=== PATIENT | male | born 1965 | race American Indian/Alaskan Native ===

== ENCOUNTER 2024-12-01 10:59 | Observation (INO) | payer BC, SELFPAY ==
[2024-12-01] VITALS (8 sets, daily range): BP systolic 143–181; BP diastolic 87–114; PULSE 64–87; RESP 16–20; TEMP 36.2–37.1; O2SAT 94–97; BMI 32.3
--- NOTE | 2024-12-01 11:00 | PC.NURSE ---
STROKE ALERT INITIATED PRIOR TO ARRIVAL AT 1050. APON ARRIVAL TO ED PT IMMEDIATELY ASSESSED BY MD AND DIRECTED TO CT PER STROKE PROTOCOL.
--- NOTE | 2024-12-01 11:02 | EKG_ITS ---
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
--- NOTE | 2024-12-01 11:02 | XR_ITS ---
Examination: CT brain head without contrast. 2-D sagittal coronal reconstructions Date and time of exam:December 01, 2024 1105 hours INDICATIONS: Stroke alert, onset left-sided body numbness beginning this morning CTDI: vol (mGy):51.8 DLP: (mGycm):1069 Technique: Multiple CT axial sections of the brain have been obtained, 5 mm slice thickness. Contrast has not been administered. 2-D sagittal, coronal reconstructions have been obtained Low dose protocols were performed. One or more of the following dose reduction techniques were used; automated exposure control, adjustment of the mA and/or KV according to patient size, use of iterative reconstruction technique. Findings: No significant ventricular enlargement. Intra-axial or extra-axial hemorrhage density is not seen. No mass effect or midline shift Basal cisterns are not remarkable. Fourth ventricle is midline. Cranial vault intact. Impression: Negative for acute hemorrhage, mass effect or midline shift
--- NOTE | 2024-12-01 11:02 | XR_ITS ---
Examination: CTA carotids with intravenous contrast CTA brain, head with intravenous contrast. 2-D sagittal, coronal reconstructions. 3-D reconstructions. Exam date and time: December 01, 2024 11:11 AM INDICATIONS: Stroke alert, onset left-sided body numbness beginning this morning CTDI: vol (mGy) 93.4 DLP: (mGycm) 545 Technique: Multiple CTA axial brain, head carotid images post intravenous contrast injection 100 cc, Isovue-370. 2-D sagittal, coronal reconstructions. 3-D reconstructions, 3-D post processing including vascular maximum intensity projection images. Low dose protocols were performed. One or more of the following dose reduction techniques were used; automated exposure control, adjustment of the mA and/or KV according to patient size, use of iterative reconstruction technique. Findings: No common carotid carotid bifurcation or internal carotid artery significant stenoses No vertebral artery stenoses. Mild irregularity posterior cerebral branches. No cerebral large vessel arterial occlusions or thrombus IMPRESSION: No significant neck arterial stenoses No cerebral large vessel arterial occlusions
--- NOTE | 2024-12-01 11:07 | EDNOTE_ITS ---
Neuro Symptoms Deficit-RME/HPI General Stated Complaint: NUMBNESS/ POSSIBLE STROKE Time Seen by Provider: 12/01/24 11:01 Arrival date/time: 12/01/24 10:59 Limitations: no limitations RME / HPI RME / HPI Narrative: 59 year old male with history of hypertension presents to the ED via BIBA from his PCP's office for further evaluation of stroke-like symptoms that began at approximately 10:00 AM today. The patient reports experiencing left-sided facial and upper extremity numbness and tingling, slurred speech, and a change in gait. States he went to his PCP's office in [place] for evaluation where he was referred to the ED for further evaluation and treatment. Per EMS, on scene the patient had a G-FAST score of 0. Prehospital blood sugar was 120 and blood pressure was 175/106. While in the ED, the patient reports that the left-sided numbness persists and remains unchanged. Patient mentioned a previously taking Plavix and last took one year ago. Patient also reports noncompliance with his hypertension medication and has missed 3 doses in the last week. No other associated symptoms or complaints at this time. Denies fevers, chills, chest pain, cough, shortness of breath, abdominal pain, nausea, vomiting, diarrhea, or urinary symptoms. LKWT 10:00 AM 12/01/2024. Related Data Allergies Allergy/AdvReac Type Severity Reaction Status Date / Time No Known Allergies Allergy Unknown Uncoded 10/12/09 09:05 Review of Systems Review of Systems Systems Reviewed: All systems reviewed, normal except as documented Past Medical History Past Medical History CARDIAC: Positive Cardiac Disorders and Hypertension Social History SMOKING STATUS: Never smoker ED Exam General Limitations: Present no limitations General appearance: Present alert and in no apparent distress Head Head exam: Present atraumatic, normocephalic and normal inspection Eye Eye exam: Present normal appearance, PERRL and EOMI ENT ENT exam: Present normal exam, normal oropharynx and mucous membranes moist Neck Neck exam: Present normal inspection, full ROM and trachea midline Chest Chest inspection: Present normal inspection and symmetric chest wall rise Respiratory Respiratory exam: Present normal lung sounds bilaterally Cardiovascular Cardiovascular exam: Present regular rate, normal rhythm and normal heart sounds Abdominal Exam Abdominal exam: Present soft and normal bowel sounds Extremities Exam Extremities exam: Present normal inspection and full ROM Back Exam Back exam: Present normal inspection and full ROM Neurological Exam Neurological exam: Present alert, oriented X3, CN II-XII intact and other (No facial droop, no drift ) Psychiatric Psychiatric exam: Present normal affect and normal mood Skin Skin exam: Present warm, dry, intact and normal color Course Quality Measures Suspected type of Stroke: TIA Last known well (date): 12/01/24 Last known well (time): 10:00 Tenecteplase given: Reason(s) TPA not given: Stroke severity too mild (non-disabling) not given stroke Orders Category Date Time Status Bedside Blood Glucose NOW Care 12/01/24 11:02 Active Radiological Equipment Specialist NOW Care 12/01/24 11:02 Active Continuous Pulse Oximetry NOW Care 12/01/24 11:02 Completed EKG (ED ONLY) *Do not use* NOW Care 12/01/24 11:02 Completed In and Out Catheter NEEDED Care 12/01/24 11:02 Active Insert IV NOW Care 12/01/24 11:02 Active NIH Stroke Scale now Care 12/01/24 11:02 Active NPO NOW Care 12/01/24 11:02 Active Nurse Swallow Screen x1 Care 12/01/24 11:02 Active Consult to Neurology / Tele-Neurology Routine Cons 12/01/24 11:[address] angio stroke protocol Stat Exams 12/01/24 11:[address] stroke protocol Stat Exams 12/01/24 11:02 Completed EKG (ED Only) Stat Exams 12/01/24 11:02 Draft CBC Stat Lab 12/01/24 11:13 Completed Comprehensive Metabolic Panel Stat Lab 12/01/24 11:13 Completed Drug Screen,Urine Stat Lab 12/01/24 11:50 Completed HCG Titer if Positive Stat Lab 12/01/24 11:13 Completed Magnesium Stat Lab 12/01/24 11:13 Completed Partial Thromboplastin Time Stat Lab 12/01/24 11:13 Completed Prothrombin Time with INR Stat Lab 12/01/24 11:13 Completed Troponin I Stat Lab 12/01/24 11:13 Completed Urinalysis Stat Lab 12/01/24 11:50 Completed Urine Culture Stat Lab 12/01/24 11:50 Received Aspirin Chew Med 12/01/24 12:14 Discontinued 162 mg PO X1 ONE Metoprolol Tartrate Inj [Lopressor Inj] Med 12/01/24 12:14 Discontinued 5 mg IVP X1 ONE Oxygen Delivery NOW RT 12/01/24 11:02 Active Vital Signs Vital signs: Vital Signs Pulse Rate 76 12/01/24 11:01 Respiratory Rate 20 12/01/24 11:01 Blood Pressure 181/110 H 12/01/24 11:01 Pulse Oximetry (%) 94 L 12/01/24 11:01 Oxygen Delivery Method Room Air 12/01/24 11:01 Pulse ox is 94% on room air which is adequate. Neuro Symptoms / Deficit MDM Narrative MDM Narrative:: Briana Hirsch am scribing for and in the presence of Dr. Miner. Patient data External records reviewed:: EMS form Clinical information provided by:: patient and EMS (Provided prehospital course ) Social determinants that could affect healthcare access:: none Patient has the following chronic illnesses:: Hypertension, medication noncompliance How is presenting disease/condition affected by chronic disease/condition?: exacerbated by Evaluation data The following diagnostics were reviewed and interpreted by me:: lab results, radiology exam(s) and EKG tracing(s) (EKG at 11:24 am. Sinus rhythm, rate 76, no acute ST or T-wave changes. ) Lab and/or radiology exams considered but not ordered:: None Interpretation Summary: Ordering Physician: Samir Miner MD Date of Service: 12/01/24 Procedure(s): CT stroke protocol Accession Number(s): [id number] cc: Samir Miner MD; Antwon Green MD~ Examination: CT brain head without contrast. 2-D sagittal coronal reconstructions Date and time of exam:December 01, 2024 1105 hours INDICATIONS: Stroke alert, onset left-sided body numbness beginning this morning CTDI: vol (mGy):51.8 DLP: (mGycm):1069 Technique: Multiple CT axial sections of the brain have been obtained, 5 mm slice thickness. Contrast has not been administered. 2-D sagittal, coronal reconstructions have been obtained Low dose protocols were performed. One or more of the following dose reduction techniques were used; automated exposure control, adjustment of the mA and/or KV according to patient size, use of iterative reconstruction technique. Findings: No significant ventricular enlargement. Intra-axial or extra-axial hemorrhage density is not seen. No mass effect or midline shift Basal cisterns are not remarkable. Fourth ventricle is midline. Cranial vault intact. Impression: Negative for acute hemorrhage, mass effect or midline shift Dictated By: Antwon Green MD Signed By: <Electronically signed by Antwon Green MD in OV> 12/01/24 1124 Ordering Physician: Samir Miner MD Date of Service: 12/01/24 Procedure(s): CT angio stroke protocol Accession Number(s): [id number] cc: Samir Miner MD; Antwon Green MD~ Examination: CTA carotids with intravenous contrast CTA brain, head with intravenous contrast. 2-D sagittal, coronal reconstructions. 3-D reconstructions. Exam date and time: December 01, 2024 11:11 AM INDICATIONS: Stroke alert, onset left-sided body numbness beginning this morning CTDI: vol (mGy) 93.4 DLP: (mGycm) 545 Technique: Multiple CTA axial brain, head carotid images post intravenous contrast injection 100 cc, Isovue-370. 2-D sagittal, coronal reconstructions. 3-D reconstructions, 3-D post processing including vascular maximum intensity projection images. Low dose protocols were performed. One or more of the following dose reduction techniques were used; automated exposure control, adjustment of the mA and/or KV according to patient size, use of iterative reconstruction technique. Findings: No common carotid carotid bifurcation or internal carotid artery significant stenoses No vertebral artery stenoses. Mild irregularity posterior cerebral branches. No cerebral large vessel arterial occlusions or thrombus IMPRESSION: No significant neck arterial stenoses No cerebral large vessel arterial occlusions Dictated By: Antwon Green MD Signed By: <Electronically signed by Antwon Green MD in [place]> 12/01/24 1137 Medications / Prescriptions Medications or Prescriptions considered but not ordered:: None Medication administrations:: Medication Administration History Discontinued Medications Aspirin (Aspirin 81 Mg Chew) 162 mg PO X1 ONE Stop: 12/01/24 12:15 Metoprolol Tartrate (Metoprolol Tartrate Inj 1 Mg/Ml Amp 5 Ml) 5 mg IVP X1 ONE Stop: 12/01/24 12:15 See above Consultations Consultation(s) initiated? (list below): Yes Consultation #1 (Physician, Specialty, Details): Radiologist Dr. Green called to report head CT was negative for hemorrhage. Time: 11:24 Consultation #2 (Physician, Specialty, Details): I spoke with teleneurologist Dr. Thibodeaux. States patient at this time is not a candidate for TNK. Time: 11:42 Consultation #3 (Physician, Specialty, Details): I spoke with resident working with Dr. Ga. Discussed patients PMHx, HPI, ED course, exam findings, labs, and radiology results. The hospitalist agree to accept the patient for admission. Time: 12:17 Diagnosis Neuro Differential Diagnosis: subarachnoid hemorrhage, cerebrovascular accident and transient cerebral ischemia Most likely diagnosis given after review of the tests above:: TIA Admission Indicated Admission indicated?: indicated Admission Request Was there a request for admission?: Yes Admission Attestation Admission request attestation: Discussed case with [] from Hospitalist service regarding admission. Discussed patients ED course, exam findings, labs, and radiology results. The Hospitalist [agrees,declines] to accept the patient for admission. Disposition Plan Disposition Plan: Admit Critical Care Time Critical Care Time Critical Care Time: Yes Total Critical Care Time (min.): 35 Attestation: The high probability of sudden, clinically significant deterioration in the patient's condition required the highest level of my preparedness to intervene urgently. The services I provided to this patient were to treat and/or prevent clinically significant deterioration. Services included the following: chart data review, reviewing nursing notes and/or old charts, documentation time, education consultant collaboration regarding findings and treatment options, medication orders and management, direct patient care, vital sign assessments and ordering, interpreting and reviewing diagnostic studies and lab tests. Aggregate critical care time includes only time during which I was engaged in work directly related to the patient's care, as described above, whether at bedside or elsewhere in the Emergency Department. It did not include time spent performing other reported procedures or the services of residents, students, nurses or physician assistants. Discharge Plan Plan Patient Disposition: Admit Acute Care w/in Hospital Prescriptions/Referrals Referrals: No Primary/Family,Physician [Primary Care Provider] - In 1 week Problem List Clinical Impression: TIA (transient ischemic attack) Patient/Caregiver Discharge Instructions Print Language: Belarusian Stand Alone Forms: Yasemin Award Info., Patient Portal Info Letter
[2024-12-01 11:24] LABS: Basophils # (Auto) 0.1 Thou/mm3 (0.0-0.2); Basophils % (Auto) 1 % (0-2.5); Eosinophils # (Auto) 0.1 Thou/mm3 (0.0-0.5); Eosinophils % (Auto) 2 % (0-10); Hematocrit 44.3 % (41.0-53.0); Hemoglobin 15.5 g/dL (13.5-16.0); Immature Granulocytes % (Auto) 0 % (0-0); Immature Granulocytes Auto 0.02 Thou/mm3 (0.00-0.00); Lymphocytes # (Auto) 1.8 Thou/mm3 (1.0-4.8); Lymphocytes % (Auto) 26 % (10-50); Mean Corpuscular Hemoglobin 30.4 pg (25.0-35.0); Mean Corpuscular Volume 87 fL (80-100); Monocytes # (Auto) 0.6 Thou/mm3 (0.0-0.8); Monocytes % (Auto) 9 % (0-12); Neutrophils # (Auto) 4.4 Thou/mm3 (1.8-7.7); Neutrophils % (Auto) 63 % (37-80); Nucleated Red Blood Cell % 0 /100 WBC (0); Platelet Count 312 Thou/mm3 (140-440); RDW Standard Deviation 43.4 fL (35.1-43.9); White Blood Count 7.1 Thou/mm3 (3.8-10.6)
[2024-12-01 11:35] LABS: Partial Thromboplastin Time 25.6 Seconds (22.0-36.0); Prothrombin Time 11.4 Seconds (9.0-12.2)
[2024-12-01 11:38] LABS: Alanine Aminotransferase 25 U/L (10-49); Albumin, Serum 4.3 gm/dL (3.5-5.0); Albumin/Globulin Ratio 1.7 (1.2-2.2); Alkaline Phosphatase 82 U/L (46-116); Anion Gap 10 (7-16); Aspartate Amino Transferase 24 U/L (0-34); BUN/Creatinine Ratio 17 Ratio (12-20); Bilirubin,Total 0.8 mg/dL (0.3-1.2); Blood Urea Nitrogen 20 mg/dL (9-23); Calcium 8.9 mg/dL (8.3-10.6); Calcium (Corrected) 8.9 mg/dL (8.5-10.1); Chloride 107 mMol/L (98-107); Creatinine (Component) 1.2 mg/dL (0.6-1.3); Estimated Creatinine Clearance 70.8 mL/min (>60); Globulin 2.6 gm/dL (2.3-3.5); Glucose 121 mg/dL (74-106); Osmolality,Calculated 286 (275-295); Potassium 3.6 mMol/L (3.4-5.1); Sodium 142 mMol/L (136-145); Total Protein 6.9 gm/dL (5.7-8.2); Troponin I < 0.002 ng/mL (0.0-0.045); eGFR > 60 See Note
--- NOTE | 2024-12-01 11:42 | ESCONSULT_ITS ---
Tele Neuro Consultation Consultation Date 12/01/24 Most Recent Vital Signs Last Vital Signs Temp 98.8 F 12/01/24 11:28 Pulse 75 12/01/24 11:02 Resp 20 12/01/24 11:01 BP 181/110 H 12/01/24 11:01 Pulse Ox 94 L 12/01/24 11:01 O2 Del Method Room Air 12/01/24 11:28 Laboratory-Coagulation Panel PT 11.4 Seconds (9.0-12.2) 12/01/24 11:13 INR 1.0 (0.9-1.3) 12/01/24 11:13 APTT 25.6 Seconds (22.0-36.0) 12/01/24 11:13 Consultation Narrative [facility] Tele[facility]rology Consult Services Patient Name:???Ronaldo Montalvo Date of :???1965 Identification Number:??? Date of Service:???12/01/2024 10:51:07 Diagnosis:?G45.9 - Transient cerebral ischemic attack, unspecified Impression: ?Patient presented with numbness. Head CT shows no acute process. no thrombolytics were offered since patient has no disabling symptoms. Our recommendations are outlined below. Recommendations: ? Stroke/Telemetry Floor ? Neuro Checks ? Bedside Swallow Eval ? DVT Prophylaxis ? IV Fluids, Normal Saline ? Head of Bed 30 Degrees ? Euglycemia and Avoid Hyperthermia (PRN Acetaminophen) ? Initiate or continue Aspirin 325 MG daily Sign Out: ? Discussed with Emergency Department Provider Advanced Imaging:CTA Head and Neck Completed. LVO:No Patient in not a candidate for ERA Metrics: Last Known Well: 12/01/2024 10:00:00 Dispatch Time: 12/01/2024 10:51:07 Arrival Time: 12/01/2024 10:59:00 Initial Response Time: 12/01/2024 10:52:00Symptoms: SLurred speech. Initial patient interaction: 12/01/2024 11:07:25 NIHSS Assessment Completed: 12/01/2024 11:12:00Patient is not a candidate for Thrombolytic. Thrombolytic Medical Decision: 12/01/2024 11:13:41Patient was not deemed candidate for Thrombolytic because of following reasons: Stroke severity too mild (non-disabling) . CT head showed no acute hemorrhage or acute core infarct. Primary Provider Notified of Diagnostic Impression and Management Plan on: 12/01/2024 11:41:35 History of Present Illness:Patient is a 59 year old Male. Patient was brought by EMS for symptoms of SLurred speech. Past medical history of hypertension presented with numbness on the left side. History was provided by the patient at bedside. Last seen normal was around 1000 [address] Started to have numbness and slurred speech. Was seen by PCP and transferred to ER. In route symptoms improved. ? Past Medical History: ?Hypertension Medications: No Anticoagulant use? No Antiplatelet use Reviewed EMR for current medications Allergies:? Reviewed Social History: Drug Use: No Family History: There is no family history of premature cerebrovascular disease pertinent to this consultation ROS : 14 Points Review of Systems was performed and was negative except mentioned in HPI. Past Surgical History: There Is No Surgical History Contributory To Today?s Visit ? Examination: BP(176/106),?Pulse(76), 1A: Level of Consciousness - Alert; keenly responsive?+ 0 1B: Ask Month and Age - Both Questions Right?+ 0 1C: Blink Eyes & Squeeze Hands - Performs Both Tasks?+ 0 2: Test Horizontal Extraocular Movements - Normal?+ 0 3: Test Visual Esteves - No Visual Loss?+ 0 4: Test Facial Palsy (Use Grimace if Obtunded) - Normal symmetry?+ 0 5A: Test Left Arm Motor Drift - No Drift for 10 Seconds?+ 0 5B: Test Right Arm Motor Drift - No Drift for 10 Seconds?+ 0 6A: Test Left Leg Motor Drift - No Drift for 5 Seconds?+ 0 6B: Test Right Leg Motor Drift - No Drift for 5 Seconds?+ 0 7: Test Limb Ataxia (FNF/Heel-Farr) - No Ataxia?+ 0 8: Test Sensation - Normal; No sensory loss?+ 0 9: Test Language/Aphasia - Normal; No aphasia?+ 0 10: Test Dysarthria - Normal?+ 0 11: Test Extinction/Inattention - No abnormality?+ 0 NIHSS Score:?0 Pre-Morbid Modified [place] Scale:0 Points = No symptoms at all Spoke with :?Dr Miner This consult was conducted in real time using interactive audio and video technology. Patient was informed of the technology being used for this visit and agreed to proceed. Patient located in hospital and provider located at home/office setting. Patient is being evaluated for possible acute neurologic impairment and high probability of imminent or life-threatening deterioration. I spent total of 30 minutes providing care to this patient, including time for face to face visit via telemedicine, review of medical records, imaging studies and discussion of findings with providers, the patient and/or family. Dr Sam Raygoza-Kenia Thibodeaux [facility] For Inpatient follow-up with [facility] physician please call [facility] at . As we are not an outpatient service for any post hospital discharge needs please contact the hospital for assistance. If you have any questions for the [facility] physicians or need to reconsult for clinical or diagnostic changes please contact us via [facility] at .
[2024-12-01 11:45] LABS: HCG Titer if Positive Negative
[2024-12-01 11:55] LABS: Collection Type, Urine Clean Catch; Squamous Epithelial Cell,Urine 0 /hpf (0-5)
[2024-12-01 12:01] LABS: Bilirubin,Urine Negative (Negative); Blood,Urine Negative (Negative); Clarity,Urine Clear (Clear/Hazy); Color,Urine Lt-Yellow (Lt Yel-Yel); Glucose, Urine Negative (Negative); Ketones,Urine Negative (Negative); Leukocyte Esterase,Urine Negative (Negative); Nitrite,Urine Negative (Negative); Protein,Urine Negative (Neg - Trace); RBC,Urine 1 /hpf (0-3); Urobilinogen,Urine Negative mg/dL (0.0-1.0); WBC,Urine 1 /hpf (0-5)
[2024-12-01 12:05] LABS: Amphetamine/Methamp Scrn,U Negative (Negative); Barbiturate Screen,Urine Negative (Negative); Benzodiazepines Screen,Urine Negative (Negative); Benzoylecgonine Screen, Ur Negative (Negative); Fentanyl Screen,Urine Negative (Negative); Opiate Screen,Urine Negative (Negative); THC Screen,Urine Negative (Negative)
[2024-12-01] MEDS: ASPIRIN 81 MG CHEW 162 MG PO (12:53)
[2024-12-01] MEDS: METOPROLOL TARTRATE INJ 1 MG/ML AMP 5 ML 5 MG IVP (12:54)
--- NOTE | 2024-12-01 14:05 | ESHP_ITS ---
<Statement entered by Jammie Willams MD - 12/01/24 16:14> A[id number]-old male patient with hypertension, CAD, anxiety, hyperlipidemia, came to the ED due to acute slurred speech times and left-sided weakness. His symptoms started suddenly with no triggering factor. Patient denied any blurry vision, however he mentioned that he was somehow dizzy. Reported also mouth deviation. Last time none to be fine was 10 AM when he started to experience the symptoms he went to his primary care provider in [place] in which he recommended him to come to the ED. In the ambulance BE-FAST screening was 0. On presentation all patient symptoms has resolved. CT brain, CTA of head and neck was negative for acute on presentation her blood pressure was 181/110 he was given metoprolol 5 mg IV by the ED physician. Patient was admitted for stroke workup we are pending in house Neuro-recs, patient was started on aspirin 325, A1c, lipid panel, were ordered for risk stratification, PT was ordered, will need to monitor. During patient assessment he mentions that he drinks 8 to 12 cans of beer socially. However he denied daily alcohol drinking. For that reason we will keep monitoring the patient if he started to experience withdrawal symptoms we will put him on CIAK protocol. - Patient's plan and care discussed with my attending, Dr. Lenora Willams MD Internal Medicine PGY-2 Documentation for date of: 12/01/24 HPI History of Present Illness Chief complaint: Slurred speech, Left sided weakness History of present illness: HPI: Patient is Guyanese-speaking and interaction facilitated by registered healthcare collection team lead. Patient's son was present at bedside Patient is a 59-year-old male with a past medical history significant for coronary artery disease s/p angiogram 2020, primary hypertension, anxiety and hyperlipidemia presented today with a chief complaint of slurred speech and left-sided weakness. Approximately 10 AM today patient was driving when he began to experience symptoms. He felt dizzy and left-sided weakness. He was talking on the phone to his son who also reported that his speech was slurred. Denies any vision changes, tactile changes, presyncope/syncope, trauma, palpitations and SOB. Patient immediately drove to the nearest urgent care in [place] and was subsequently transferred to [facility] via ambulance. By this time his symptoms had completely resolved Of note in 2020 patient had coronary angiogram done at [facility] after which he was on Plavix for a few years, but then stopped taking it. He does not have any cardiology follow-up outpatient and cannot recall if any stents were placed. Teleneurology was consulted who recommended neurochecks, DVT prophylaxis and aspirin 325 mg daily. ED course: BP 181/110, pulse 76, RR 20, temp 98.8 F, SpO2 94% on room air. CT head and CTA were negative for any acute findings. Labs were significant for Hb 15.5, HCT 44.3, BUN 23, CR 1.2, Trop<0.002 In the ED patient received aspirin 162 Mg p.o. x 1 and metoprolol tartrate 5 Mg IV x 1 Patient will be admitted for treatment and management of hypertensive emergency and TIA. Neurology, Dr. Luo consulted and closely following the case. Review of Systems Review of Systems Narrative Review of Systems: GENERAL: Denies fever/chills or diaphoresis. HEENT: Denies headaches or visual changes. Denies discharge. Neuro: As above CARDIO: Denies chest pain or palpitations. PULM: Denies SOB, coughing or wheezing. GI: Denies abdominal pain, N/V/C/D. Reports having BMs. URO: Denies burning/itching/pain/urinary changes. MSK/EXT/SKIN: Denies joint/skeletal/muscle pain, issues/changes in upper or lower extremities, itchiness, or superficial pain. PSYCH: Cooperative, pleasant mood & affect. The rest of the review of systems is otherwise negative. Past Medical History Past Medical History Comments PMH COMMENT: Past medical history: Coronary artery disease Primary hypertension Anxiety Hyperlipidemia Medication list: Lisinopril 10 Mg p.o. daily Clopidogrel 75 Mg p.o. 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 Education Level: Attended up to middle school Marital Status: Single. Has 4 kids Tobacco use: Quit 20 years ago. Previously approximately 15/30-prxk-woml history ETHO use: Occasionally drinks about 10 beers on weekends Illicit drug use: Denies Social History Note: lives alone and does not exercise Family History: No significant history Exam Vital Signs Temp Pulse Resp BP Pulse Ox O2 Del Method 98.4 F 72 18 163/114 H 94 L Room Air 12/01/24 12:47 12/01/24 12:54 12/01/24 12:47 12/01/24 12:54 12/01/24 12:47 12/01/24 12:47 Narrative Exam Constitutional Alert, oriented x 3 and comfortable HEENT Vision grossly intact. Patent nares. Trachea midline Respiratory Chest normal on inspection and clear auscultation bilaterally Cardiovascular S1 and S2 audible, RRR. No murmurs carotid bruit. No gross JVD. Abdominal Soft and non tender to palpation in all quadrants. BS + Genitourinary No bladder tenderness, no flank pain. Normal to palpation Musculoskeletal Extremities tone within normal limits. No LE edema. Skin Warm, dry and intact. No apparent lesions. Psychiatric Patient has good affect, is cooperative Neurological CN II - XII grossly intact. Extremity motor and sensation grossly intact. 1A: Level of Consciousness - No deficit + 0 1B: Ask Month and Age - Answered correctly + 0 1C: Blink Eyes & Squeeze Hands - Performs Both Tasks + 0 2: Test Horizontal Extraocular Movements - Normal + 0 3: Test Visual Esteves - Normal + 0 4: Test Facial Palsy (Use Grimace if Obtunded) - No flat nasolabial fold, smile asymmetry + 0 5A: Test Left Arm Motor Drift - No Drift for 10 Seconds + 0 5B: Test Right Arm Motor Drift - No Drift for 10 Seconds + 0 6A: Test Left Leg Motor Drift - No Drift for 5 Seconds + 0 6B: Test Right Leg Motor Drift - No Drift for 5 Seconds + 0 7: Test Limb Ataxia (FNF/Heel-Farr) - No Ataxia + 0 8: Test Sensation - Normal; No sensory loss + 0 9: Test Language/Aphasia - Normal + 0 10: Test Dysarthria - Normal + 0 11: Test Extinction/Inattention - No abnormality + 0 NIHSS Score: 0 Results: Labs 12/02/24 05:42 12/02/24 05:42 Labs: Short CBC 12/01/24 Range/Units 11:13 WBC 7.1 (3.8-10.6) Thou/mm3 Hgb 15.5 (13.5-16.0) g/dL Hct 44.3 (41.0-53.0) % Plt Count 312 (140-440) Thou/mm3 BMP 12/01/24 11:13 Sodium 142 Potassium 3.6 Chloride 107 Carbon Dioxide 25.0 BUN 20 Creatinine 1.2 Glucose 121 H Calcium 8.9 Cardiac Enzymes 12/01/24 Range/Units 11:13 Troponin I < 0.002 (0.0-0.045) ng/mL Liver Function 12/01/24 Range/Units 11:13 Total Bilirubin 0.8 (0.3-1.2) mg/dL AST 24 (0-34) U/L ALT 25 (10-49) U/L Alkaline Phosphatase 82 (46-116) U/L Albumin 4.3 (3.5-5.0) gm/dL Urine 12/01/24 Range/Units 11:50 Urine Color Lt-Yellow (Lt Yel-Yel) Urine Clarity Clear (Clear/Hazy) Urine pH 6.0 (5.0-7.0) Ur Specific [place] 1.040 H (1.001-1.035) Urine Protein Negative (Neg - Trace) Urine Glucose (UA) Negative (Negative) Quality Measures Quality Measures stroke Suspected type of Stroke: TIA Last known well (date): 12/01/24 Last known well (time): 10:00 Tenecteplase given: Reason(s) Tenecteplase not given: Stroke severity too mild (non-disabling) not given Rehab services: PT evaluation ordered VTE Prophylaxis: pharmaceutical Antithrombotic by day 2:: ordered Statin ordered: <75 y/o high intensity dose Anticoagulation ordered for A-fib or flutter (current or hx): not indicated Medications Home Medications and Allergies Home Medications ?Medication ?Instructions ?Recorded ?Confirmed ?Type buspirone 10 mg tablet 10 mg PO Q6HR PRN anxiety 12/01/24 History lisinopril 20 mg tablet 20 mg PO QDAY 12/01/2412/01 History Allergies Allergy/AdvReac Type Severity Reaction Status Date / Time No Known Allergies Allergy Unknown Uncoded 10/12/09 09:05 Visit Medications Acetaminophen (Acetaminophen 325 Mg Tablet) 650 mg PO Q6H PRN PRN Reason: Fever >100.3 or pain(1-3) Stop: 12/31/24 13:51 Hydrocodone Bitart/Acetaminophen (Hydrocodone/Apap 5/325 Tablet) 1 tab PO Q4HR PRN PRN Reason: PAIN SCALE 4-10(Mod-Sev Stop: 12/06/24 13:51 Albuterol/Ipratropium (Albuterol/Ipratropium (Duoneb) Rt Miya 3 Ml Nebu) 3 ml INH Q2HR PRN PRN Reason: SHORTNESS OF BREATH OR WHEEZE Stop: 12/31/24 13:51 Aspirin (Aspirin Ec 81 Mg Tabec) 81 mg PO QDAY [facility] Stop: 01/01/25 08:59 Atorvastatin Calcium (Atorvastatin Calcium 20 Mg Tablet) 40 mg PO HS ADELE Stop: 12/31/24 13:59 Heparin Sodium (Porcine) (Heparin Sod Inj 5000 Unit/Ml Vial) 5,000 unit SC Q12HR [facility] Stop: 12/15/24 13:59 Lisinopril (Lisinopril 2.5 Mg Tablet) 10 mg PO QDAY [facility] Stop: 12/31/24 13:59 Morphine Sulfate (Morphine Sulf Inj 10 Mg/Ml Vial) 2 mg IVP Q4H PRN PRN Reason: Breakthrough Pain Stop: 12/06/24 13:51 Ondansetron HCl (Ondansetron Inj 2 Mg/Ml Inj 2 Ml) 4 mg IV Q6H PRN; Protocol PRN Reason: NAUSEA OR VOMITING Stop: 12/31/24 13:51 Sennosides (Senna Tablet) 1 tab PO QDAY [facility]; Protocol Stop: 12/31/24 13:59 Discontinued Medications Aspirin (Aspirin 81 Mg Chew) 162 mg PO X1 ONE Stop: 12/01/24 12:15 Last Admin: 12/01/24 12:53 Dose: 162 mg Metoprolol Tartrate (Metoprolol Tartrate Inj 1 Mg/Ml Amp 5 Ml) 5 mg IVP X1 ONE Stop: 12/01/24 12:15 Last Admin: 12/01/24 12:54 Dose: 5 mg Assessment & Plan Plan Patient is Guyanese-speaking and interaction facilitated by registered healthcare collection team lead. Patient's son was present at bedside Patient is a 59-year-old male with a past medical history significant for coronary artery disease s/p angiogram 2020, primary hypertension, anxiety and hyperlipidemia presented today with a chief complaint of slurred speech and left-sided weakness. Patient will be admitted for treatment and management of hypertensive emergency and TIA. TIA Hypertensive emergency?resolving Rule out stroke Patient presented with slurred speech, dizziness and left-sided weakness On admission patient's BP was 181/110 and had symptoms of dizziness and slurred speech. CT head and CTA were both negative for any acute findings Plan: - Patient is started on stroke protocol - Neuro checks q 4H - Head of bed elevated to 30 degrees - Swallow eval and bedside swallow screen ordered - PT/OT referrals placed - Seizure precautions in place - Allow permissive HTN. Antihypertensives if BP >220/120, with a goal of reduction in BP during the first 24 hours - HbA1C, Lipid panel, TSH ordered - ECHO with bubble study ordered - PRN Acetaminophen 650mg to avoid hyperthermia - PRN Labetaol 10 mg IV Q10 mins for SBP > 220 - DVT Prophylaxis with Heparin 5000 U SC BID - ASA 325mg po daily as per Teleneurology recommendations - Dr Luo consulted, pending in-house Neurology recommendations Primary hypertension Hyperlipidemia Coronary artery disease s/p angioplasty 2020 Home medication lisinopril 10 Mg p.o. daily. Patient states that he was previously on a statin but has not been on one for many years. Plan: ? Home antihypertensive held ? Allow permissive hypertension for 24-48 hours - Atorvastatin 40 Mg p.o. at bedtime Health maintenance: Disposition: Pending PT, [facility] [employer], echo with bubble study and in-house neurology evaluation Diet: Cardiac Lines: pIVs GI Prophylaxis: None Thrombo Prophylaxis: Heparin Code status: FULL CODE Plan of care discussed with Attending Dr. Ga and PGY 2 Dr. Imer Gonzalez MD PGY 1 Disclaimer: This note was dictated by speech recognition. Minor errors in academic administrator may be present due to voice recognition software. Attending Provider Attestation/Addendum I have examined the patient, reviewed labs and imaging findings, discussed the case with the resident(s), and reviewed entered orders. I agree with the plan of care as outlined in this note, with these additional summaries/recommendations: Patient seen at bedside. Patient reports he had left facial numbness and slurred speech which is the reason he came to the emergency room although resolved just prior to presentation. Patient will be admitted to the hospital for likely transient ischemic attack. CT head was negative for acute hemorrhage, mass effect or midline shift. CTA head and neck showed no LVO or significant neck arterial stenosis. Patient was seen by teleneurology who recommends admission. Admit to telemetry, neurochecks, bedside swallow eval, euglycemia, and start aspirin 325 mg p.o. daily. Consult in-house neurology, recommendations appreciated. NIH SS score 0. No need for permissive hypertension as symptoms have resolved. Start moderate/high intensity statin. LDL 163. Further vascular stratification with TSH and A1c. Patient updated on the plan and in agreement. All questions answered to satisfaction. Dr. Harmeet MD
[2024-12-01 14:40] LABS: Glucose Estimated Average 126 mg/dL (80-131)
[2024-12-01 14:41] LABS: Cardiac Risk Estimate 5.9 RATIO (4.0-6.7); Cholesterol 234 mg/dL (132-200); HDL Cholesterol 40 mg/dL (40-60); LDL Cholesterol,Calculated 163 mg/dL (0-130); Triglycerides 155 mg/dL (30-150)
[2024-12-01 16:15] LABS: Alcohol, Blood Medical < 3.0 mg/dL (0-10.0)
--- NOTE | 2024-12-01 16:28 | PD.RESCONSUL ---
HPI Data of Consult Requesting Physician: David Ga MD Admitting Provider: David Ga MD Attending Provider: David Ga MD Primary Care Provider: Physician No Primary/Family Consult Narrative Reason for consult: left sided numbness, weakness and slurred speech History of present illness: The patient is a 59-year-old male with a previous medical history of hypertension, anxiety, CAD status post stent placement who was brought to the ED by the ambulance from the clinic after experiencing left-sided body numbness, slurred speech, dizziness and weakness. Family members also noted facial droop, unsure what side. According to the patient, approximately at 10 AM he was driving and started to experience those symptoms, went to the clinic nearby and was brought to the ED. In the ED blood pressure was 191/100, heart rate 76, afebrile, saturating [address] head and CTA head and neck was negative for acute stroke, large vessel occlusion. EKG showed sinus rhythm. Patient denies having stroke in the past. Teleneuro was consulted, NIHSS was 0, not a candidate for thrombolytic therapy due to nondisabling stroke symptoms. Patient was recommended to be admitted for workup. Neurology was consulted for stroke rule out. Social history: Denies smoking, drinking alcohol, recreational substances. Medications: Lisinopril, buspirone (bottle was but continues to take buspirone, was instructed to stop taking medication). Allergies: Denies cc:: cc: David Ga MD Review of Systems Review of Systems Systems Reviewed: All systems reviewed, normal except as documented Past Medical History Past Medical History CARDIAC: Positive Cardiac Disorders, Atherosclerotic Heart Disease, Hypercholesterolemia and Hypertension Social History SMOKING STATUS: Never smoker Exam Vital Signs Temp Pulse Resp BP Pulse Ox O2 Del Method 97.2 F 87 18 147/88 H 94 L Room Air 12/01/24 15:12/01/24 15:12/01/24 15:12/01/24 15:12/01/24 15:12/01/24 15:00 Narrative Exam Gen: Well-developed and well-nourished. HEENT: NCAT, PERRLA, EOMI, MMM, anicteric conjunctivae. CVS: normal S1 and S2. RRR. No M/R/G. Resp: CTA B/L. No rhonchi, rales, crackles or wheezing. Abd: soft, non-tender, non-distended. BS+ in all 4 quadrants. MSK: Good ROM in BUE & BLE. No edema or rash. Neuro: CN II-XII grossly intact. Strength 5/5 in BUE & BLE. Alert and oriented x3. Psych: appropriate mood and affect. Results Labs 12/01/24 11:13 12/01/24 11:13 Labs: Short CBC 12/01/24 Range/Units 11:13 WBC 7.1 (3.8-10.6) Thou/mm3 Hgb 15.5 (13.5-16.0) g/dL Hct 44.3 (41.0-53.0) % Plt Count 312 (140-440) Thou/mm3 BMP 12/01/24 11:13 Sodium 142 Potassium 3.6 Chloride 107 Carbon Dioxide 25.0 BUN 20 Creatinine 1.2 Glucose 121 H Calcium 8.9 Cardiac Enzymes 12/01/24 Range/Units 11:13 Troponin I < 0.002 (0.0-0.045) ng/mL Liver Function 12/01/24 Range/Units 11:13 Total Bilirubin 0.8 (0.3-1.2) mg/dL AST 24 (0-34) U/L ALT 25 (10-49) U/L Alkaline Phosphatase 82 (46-116) U/L Albumin 4.3 (3.5-5.0) gm/dL Urine 12/01/24 Range/Units 11:50 Urine Color Lt-Yellow (Lt Yel-Yel) Urine Clarity Clear (Clear/Hazy) Urine pH 6.0 (5.0-7.0) Ur Specific [employer] 1.040 H (1.001-1.035) Urine Protein Negative (Neg - Trace) Urine Glucose (UA) Negative (Negative) Quality Measures Quality Measures stroke Suspected type of Stroke: TIA Last known well (date): 12/01/24 Last known well (time): 10:00 Tenecteplase given: Reason(s) Tenecteplase not given: Stroke severity too mild (non-disabling) not given Rehab services: PT evaluation ordered VTE Prophylaxis: pharmaceutical Antithrombotic by day 2:: ordered Statin ordered: <75 y/o high intensity dose Anticoagulation ordered for A-fib or flutter (current or hx): not indicated Medications Home Medications and Allergies Home Medications ?Medication ?Instructions ?Recorded ?Confirmed ?Type buspirone 10 mg tablet 10 mg PO Q6HR PRN anxiety 12/01/24 12/01/24 History lisinopril 20 mg tablet 20 mg PO QDAY 12/01/24 12/01/24 History Allergies Allergy/AdvReac Type Severity Reaction Status Date / Time No Known Allergies Allergy Unknown Uncoded 10/12/09 09:05 Visit Medications Acetaminophen (Acetaminophen 325 Mg Tablet) 650 mg PO Q6H PRN PRN Reason: Fever >100.3 or pain(1-3) Stop: 12/31/24 13:51 Hydrocodone Bitart/Acetaminophen (Hydrocodone/Apap 5/325 Tablet) 1 tab PO Q4HR PRN PRN Reason: PAIN SCALE 4-10(Mod-Sev Stop: 12/06/24 13:51 Albuterol/Ipratropium (Albuterol/Ipratropium (Duoneb) Rt Miya 3 Ml Nebu) 3 ml INH Q2HR PRN PRN Reason: SHORTNESS OF BREATH OR WHEEZE Stop: 12/31/24 13:51 Aspirin (Aspirin 325 Mg Tablet) 325 mg PO QDAY ADELE Stop: 01/01/25 08:59 Atorvastatin Calcium (Atorvastatin Calcium 20 Mg Tablet) 40 mg PO HS ADELE Stop: 12/31/24 13:59 Heparin Sodium (Porcine) (Heparin Sod Inj 5000 Unit/Ml Vial) 5,000 unit SC Q12HR ADELE Stop: 12/15/24 13:59 Labetalol HCl (Labetalol Inj 5 Mg/Ml Vial 20 Ml) 10 mg IVP Q10MIN PRN PRN Reason: SBP > 220 Stop: 12/31/24 14:44 Lisinopril (Lisinopril 2.5 Mg Tablet) 10 mg PO QDAY ADELE Stop: 12/31/24 13:59 Melatonin (Melatonin 3 Mg Tablet) 3 mg PO HS ADELE Stop: 12/31/24 20:59 Morphine Sulfate (Morphine Sulf Inj 10 Mg/Ml Vial) 2 mg IVP Q4H PRN PRN Reason: Breakthrough Pain Stop: 12/06/24 13:51 Ondansetron HCl (Ondansetron Inj 2 Mg/Ml Inj 2 Ml) 4 mg IV Q6H PRN; Protocol PRN Reason: NAUSEA OR VOMITING Stop: 12/31/24 13:51 Sennosides (Senna Tablet) 1 tab PO QDAY [facility]; Protocol Stop: 12/31/24 13:59 Discontinued Medications Aspirin (Aspirin 81 Mg Chew) 162 mg PO X1 ONE Stop: 12/01/24 12:15 Last Admin: 12/01/24 12:53 Dose: 162 mg Aspirin (Aspirin Ec 81 Mg Tabec) 81 mg PO QDAY [facility] Stop: 01/01/25 08:59 Aspirin (Aspirin Ec 81 Mg Tabec) 325 mg PO QDAY [facility] Stop: 01/01/25 08:59 Aspirin (Aspirin Ec 81 Mg Tabec) 162 mg PO X1 ONE Stop: 12/01/24 15:31 Metoprolol Tartrate (Metoprolol Tartrate Inj 1 Mg/Ml Amp 5 Ml) 5 mg IVP X1 ONE Stop: 12/01/24 12:15 Last Admin: 12/01/24 12:54 Dose: 5 mg Assessment & Plan Plan The patient is a 59-year-old male with a previous medical history of hypertension, anxiety, CAD status post stent placement who was brought to the ED by the ambulance from the clinic after experiencing left-sided body numbness, slurred speech, dizziness and weakness. Neurology was consulted for stroke rule out. #Stroke rule out #TIA #Hypertension #Hyperlipidemia Patient had left sided numbness, slurred speech, dizziness that resolved in less than [address] head and CTA had and neck negative for acute stroke and LVO. NIHSS 0. 12/01/24: LDL 163, A1c 6.0%. Plan: -Telemetry Floor - Neuro Checks q4hr - Patient passed bedside swallow screen. can start diet -DVT Prophylaxis -Head of Bed 30 Degrees elevation -Euglycemia and Avoid Hyperthermia (PRN Acetaminophen) - Aspirin 81 mg qday after receiving 325 mg loading dose - Atorvastatin 80 mg qday - permissive hypertension for 24 hours, BP management if BP >220/120 - MRI brain #Prediabetes Plan: - follow-up outpatient Plan of care discussed with attending Dr. Luo. Katherine Posey MD, PGY 1. Attending Provider Attestation/Addendum I personally seen and examined the patient at the bedside I agree with resident's findings, assessment and plan of care. Will follow-up with MRI brain. Patient presents with symptoms of TIA with no focal neurological send on exam. Continue with office pressure control for another 24 hours or until the MRI brain is done. Continue aspirin 81 mg and statin.
[2024-12-01] MEDS: ASPIRIN EC 81 MG TABEC 162 MG PO (17:22)
[2024-12-01] MEDS: HEPARIN SOD INJ 5000 UNIT/ML VIAL SC (17:23)
[2024-12-01] MEDS: ATORVASTATIN CALCIUM 20 MG TABLET 40 MG PO (21:10)
[2024-12-01] MEDS: MELATONIN 3 MG TABLET PO (21:10)
[2024-12-02] VITALS (7 sets, daily range): BP systolic 131–156; BP diastolic 86–98; PULSE 62–94; RESP 16–21; TEMP 35.9–36.3; O2SAT 95–99; BMI 31.4
--- NOTE | 2024-12-02 | XR_ITS ---
Examinations: MRI Brain without intravenous contrast. MRA brain without intravenous contrast. MRA carotids without intravenous contrast 3-D vascular reconstructions Date and time of exam: December 02, 2024, 1404 hours INDICATIONS: CT stroke alert december 01, 2024, slurred speech, left-sided body weakness Technique: Multiple axial and sagittal images of the brain have been obtained MRA brain carotid images without contrast obtained, including 3-D postprocessing, vascular maximum intensity projection images Findings: [place] is not enlarged. The optic chiasm and infundibular stalk are not remarkable. Prepontine and interpeduncular cisterns are not enlarged. No localized enlargement of the medulla or orlin. Fourth ventricle and cerebellar tonsils normal in position. Subacute hemorrhage is not seen. Fourth ventricle is midline. Mass in the cerebellopontine angle region is not evident. 7th and 8th nerve complexes exhibits symmetry. Globes are symmetrical with no retro-orbital mass. Increased white matter signal evident, multiple punctate foci increased signal in the cerebral white matter Diffusion-weighted images demonstrate no foci of restricted diffusion Mass-effect upon the ventricular system is not identified. MRA carotid images no significant carotid stenoses. MRA brain images no cerebral large vessel arterial occlusions Impression: Demyelinating disease pattern
[2024-12-02 06:07] LABS: Basophils % (Auto) 1 % (0-2.5); Eosinophils # (Auto) 0.1 Thou/mm3 (0.0-0.5); Eosinophils % (Auto) 1 % (0-10); Hematocrit 46.8 % (41.0-53.0); Immature Granulocytes % (Auto) 0 % (0-0); Immature Granulocytes Auto 0.02 Thou/mm3 (0.00-0.00); Lymphocytes # (Auto) 1.8 Thou/mm3 (1.0-4.8); Lymphocytes % (Auto) 27 % (10-50); Mean Corpuscular HGB Conc 34.2 g/dl (31.0-37.0); Mean Corpuscular Hemoglobin 30.3 pg (25.0-35.0); Mean Corpuscular Volume 89 fL (80-100); Monocytes # (Auto) 0.5 Thou/mm3 (0.0-0.8); Monocytes % (Auto) 8 % (0-12); Neutrophils # (Auto) 4.3 Thou/mm3 (1.8-7.7); Neutrophils % (Auto) 64 % (37-80); Nucleated Red Blood Cell % 0 /100 WBC (0); Platelet Count 300 Thou/mm3 (140-440); Red Blood Count 5.28 Miln/mm3 (4.50-5.90); White Blood Count 6.7 Thou/mm3 (3.8-10.6)
[2024-12-02 06:37] LABS: Anion Gap 11 (7-16); BUN/Creatinine Ratio 14 Ratio (12-20); Blood Urea Nitrogen 15 mg/dL (9-23); Calcium 8.8 mg/dL (8.3-10.6); Carbon Dioxide 25.3 mMol/L (20.0-31.0); Chloride 105 mMol/L (98-107); Creatinine (Component) 1.1 mg/dL (0.6-1.3); Estimated Creatinine Clearance 76.3 mL/min (>60); Glucose 121 mg/dL (74-106); Magnesium 2.1 mg/dL (1.6-2.6); Osmolality,Calculated 283 (275-295); Phosphorous 3.6 mg/dL (2.4-5.1); Sodium 141 mMol/L (136-145); Thyroid Stimulating Hormone 1.84 uIU/mL (0.55-4.78); eGFR > 60 See Note
--- NOTE | 2024-12-02 07:17 | PC.NURSE ---
Pt. refused bed alarm but agrees to call for help. Pt.provided educated on fall risks and precautions in preferred language.
[2024-12-02] MEDS: HEPARIN SOD INJ 5000 UNIT/ML VIAL SC ×2 (08:44→22:17)
[2024-12-02] MEDS: ASPIRIN EC 81 MG TABEC PO (08:44)
--- NOTE | 2024-12-02 09:36 | XR_ITS ---
Examination: Right hand 2 views Technique AP lateral right hand 2 views December 02, 2024 0954 hours INDICATIONS: History injury to the hand with metal fragment FINDINGS: 4 mm foreign body in the soft tissue palmar to the distal phalanx index finger No fracture IMPRESSION: 4 mm foreign body in the soft tissue palmar to the distal phalanx index finger
--- NOTE | 2024-12-02 15:13 | ESPR_ITS ---
Documentation for date of: 12/02/24 Subjective Subjective Interval history: Patient was seen and examined at bedside denied any new symptoms. He reported that all his symptoms has resolved. His main concern was because he has a small foreign body on his index finger of the left hand and was wondering of that can affect his MRI results. Patient was informed that sonographic the results or has any adverse reaction to him. His lipid profile was mildly elevated however the patient already on atorvastatin. At this time are pending PT and speech therapy and also MRI and echo results. Neurology recommended to continue aspirin 81 mg and atorvastatin for now. A follow-up with the final workup results. Exam Vital Signs Temp Pulse Resp BP Pulse Ox O2 Del Method 97.1 F 80 19 156/86 H 97 Room Air 12/02/24 12:00 12/02/24 12:00 12/02/24 12:00 12/02/24 12:00 12/02/24 12:00 12/02/24 12:00 Narrative Exam GEN: AOx3, able to speak full sentences HEENT: NC/AC, PERRLA, oral mucosa moist, neck supple CVS: RRR, S1-S2 present, no murmurs appreciated RESP: CTAB GI: soft,non distended, non tender, NBS MSK: Examination of the right index showed no obvious injury or sensation of any foreign body. However, we placed a magnet in front of his finger and it showed movement of his finger with the magnet. 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 Objective Labs 12/02/24 05:42 12/02/24 05:42 Labs: Laboratory Results - last 24 hr 12/01/24 12/02/24 11:13 05:42 WBC 6.7 RBC 5.28 Hgb 16.0 Hct 46.8 MCV 89 MCH 30.3 MCHC 34.2 RDW Std Deviation 44.0 H Plt Count 300 Neut % (Auto) 64 Lymph % (Auto) 27 [place] % (Auto) 8 Eos % (Auto) 1 Baso % (Auto) 1 Neut # (Auto) 4.3 Lymph # (Auto) 1.8 [place] # (Auto) 0.5 Eos # (Auto) 0.1 Baso # (Auto) 0.0 Immature Gran # (Auto) 0.02 H Absolute Nucleated RBC 0.00 Immature Gran % 0 Nucleated RBC % 0 Sodium 141 Potassium 4.0 Chloride 105 Carbon Dioxide 25.3 Anion Gap 11 BUN 15 Creatinine 1.1 Estim Creat Clear Calc 76.3 eGFR > 60 BUN/Creatinine Ratio 14 Glucose 121 H Calculated Osmolality 283 Calcium 8.8 Phosphorus 3.6 Magnesium 2.1 TSH 1.84 Ethyl Alcohol < 3.0 Quality Measures Quality Measures stroke Suspected type of Stroke: TIA Last known well (date): 12/01/24 Last known well (time): 10:00 Tenecteplase given: Reason(s) Tenecteplase not given: Stroke severity too mild (non-disabling) not given Rehab services: PT evaluation ordered and Speech Language Pathology eval ordered VTE Prophylaxis: pharmaceutical Antithrombotic by day 2:: ordered Statin ordered: <75 y/o high intensity dose Anticoagulation ordered for A-fib or flutter (current or hx): not indicated Assessment & Plan Assessment Current Active Medications: Generic Name Dose Route Start Last Admin Trade Name Freq PRN Reason Stop Dose Admin Acetaminophen 650 mg 12/01/24 13:52 Acetaminophen 325 Mg Tablet PO 12/31/24 13:51 Q6H PRN Fever >100.3 or pain(1-3) Hydrocodone Bitart/Acetaminophen 1 tab 12/01/24 13:52 Hydrocodone/Apap 5/325 Tablet PO 12/06/24 13:51 Q4HR PRN PAIN SCALE 4-10(Mod-Sev Albuterol/Ipratropium 3 ml 12/01/24 13:52 Albuterol/Ipratropium (Duoneb) Rt Miya 3 Ml Nebu INH 12/31/24 13:51 Q2HR PRN SHORTNESS OF BREATH OR WHEEZE Aspirin 81 mg 12/02/24 09:00 12/02/24 08:44 Aspirin Ec 81 Mg Tabec PO 01/01/25 08:59 81 mg QDAY ADELE Administration Atorvastatin Calcium 80 mg 12/02/24 21:00 Atorvastatin Calcium 20 Mg Tablet PO 01/01/25 20:59 HS ADELE Heparin Sodium (Porcine) 5,000 unit 12/01/24 14:00 12/02/24 08:44 Heparin Sod Inj 5000 Unit/Ml Vial SC 12/15/24 13:59 5,000 unit Q12HR ADELE Administration Labetalol HCl 10 mg 12/01/24 14:41 Labetalol Inj 5 Mg/Ml Vial 20 Ml IVP 12/31/24 14:44 Q10MIN PRN SBP > 220 Lisinopril 10 mg 12/01/24 14:00 12/01/24 17:12 Lisinopril 2.5 Mg Tablet PO 12/31/24 13:59 Not Given QDAY ADELE Melatonin 3 mg 12/01/24 21:00 12/01/24 21:10 Melatonin 3 Mg Tablet PO 12/31/24 20:59 3 mg HS ADELE Administration Ondansetron HCl 4 mg 12/01/24 13:52 Ondansetron Inj 2 Mg/Ml Inj 2 Ml IV 12/31/24 13:51 Q6H PRN NAUSEA OR VOMITING Protocol Sennosides 1 tab 12/01/24 14:00 12/02/24 08:44 Senna Tablet PO 12/31/24 13:59 Not Given QDAY ADELE Protocol Plan Summary: A 59-year-old male with a past medical history significant for coronary artery disease s/p angiogram 2020, primary hypertension, anxiety and hyperlipidemia presented today with a chief complaint of slurred speech and left-sided weakness. Patient will be admitted for treatment and management of hypertensive emergency and TIA. TIA Hypertensive emergency?resolving Rule out stroke Patient presented with slurred speech, dizziness and left-sided weakness On admission patient's BP was 181/110 and had symptoms of dizziness and slurred speech. CT head and CTA were both negative for any acute findings. Patient passed swallow eval, all symptoms resolved. Blood pressure stable As follow triglyceride of 155, cholesterol of 234, LDL cholesterol of 163 A1c was 6.0 Plan: - Patient is started on stroke protocol - Neuro checks q 4H - Head of bed elevated to 30 degrees - PT/OT referrals placed, pending recommendations - Seizure precautions in place - ECHO with bubble study ordered - PRN Acetaminophen 650mg to avoid hyperthermia - PRN Labetaol 10 mg IV Q10 mins for SBP > 220mmhg - DVT Prophylaxis with Heparin 5000 U SC BID - ASA 81 mg p.o. daily as per in-house neurologist - Dr Luo consulted, recommendations appreciated Primary hypertension Hyperlipidemia Prediabetes Coronary artery disease s/p angioplasty 2020 Home medication lisinopril 10 Mg p.o. daily. Patient states that he was previously on a statin but has not been on one for many years. As follow triglyceride of 155, cholesterol of 234, LDL cholesterol of 163 A1c was 6.0 14.0% Risk of cardiovascular event (coronary or stroke or non-fatal UT or stroke) in next 10 years. 4.8% 10-year cardiovascular risk if risk factors were optimal Plan: ? Home antihypertensive held ? Allow permissive hypertension for 24 hours - Atorvastatin 40 Mg p.o. at bedtime - Lifestyle medication including dietary modification, and physical activity was counseled. 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 Harmeet Willams MD Internal Medicine PGY-2 Attending Provider Attestation/Addendum I have examined the patient, reviewed labs and imaging findings, discussed the case with the resident(s), and reviewed entered orders. I agree with the plan of care as outlined in this note, with these additional summaries/recommendations: Patient seen at bedside. No acute overnight events. Patient has no new symptoms to report. Most likely patient had transient ischemic attack. We will continue aspirin and atorvastatin. Pending echocardiogram and MRI brain. 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 We obtained hand x-ray which showed 4 mm foreign body in the soft tissue palmar to the distal phalanx index finger. We will check with MRI to see if patient is safe for imaging. Continue to control vascular risk factors. In-house neurology following. LDL 163 with goal less than 70. Patient is also prediabetic and we will monitor blood sugars. Patient updated on the plan and in agreement. All questions answered to satisfaction. Please see residents note for additional details and management. Dr. Harmeet MD
[2024-12-02] MEDS: MELATONIN 3 MG TABLET PO (22:17)
[2024-12-02] MEDS: ATORVASTATIN CALCIUM 20 MG TABLET 80 MG PO (22:17)
--- NOTE | 2024-12-02 23:43 | PD.VPROG1 ---
Telemedicine visit statement This visit was conducted with the use of interactive audio and video telecommunications system that permits real time communication between the patient and the provider. Patient's verbal consent for virtual visit was obtained on 12/02/24 at 2343. Documentation for date of: 12/02/24 Subjective Subjective Interval history: Patient is seen in telemetry. No new symptoms or concern similar symptoms reported after admission. He is ambulating well. Tolerating oral diet well. No more numbness or weakness on the left hemibody reported. Virtual exam Vital Signs Temp Pulse Resp BP Pulse Ox O2 Del Method 96.9 F 72 21 H 131/89 H 95 Room Air 12/02/24 20:00 12/02/24 20:00 12/02/24 20:00 12/02/24 20:00 12/02/24 20:00 12/02/24 20:00 Objective Labs 12/02/24 05:42 12/02/24 05:42 Labs: Laboratory Results - last 24 hr 12/02/24 05:42 WBC 6.7 RBC 5.28 Hgb 16.0 Hct 46.8 MCV 89 MCH 30.3 MCHC 34.2 RDW Std Deviation 44.0 H Plt Count 300 Neut % (Auto) 64 Lymph % (Auto) 27 [place] % (Auto) 8 Eos % (Auto) 1 Baso % (Auto) 1 Neut # (Auto) 4.3 Lymph # (Auto) 1.8 [place] # (Auto) 0.5 Eos # (Auto) 0.1 Baso # (Auto) 0.0 Immature Gran # (Auto) 0.02 H Absolute Nucleated RBC 0.00 Immature Gran % 0 Nucleated RBC % 0 Sodium 141 Potassium 4.0 Chloride 105 Carbon Dioxide 25.3 Anion Gap 11 BUN 15 Creatinine 1.1 Estim Creat Clear Calc 76.3 eGFR > 60 BUN/Creatinine Ratio 14 Glucose 121 H Calculated Osmolality 283 Calcium 8.8 Phosphorus 3.6 Magnesium 2.1 TSH 1.84 Assessment & Plan Problem List (1) TIA (transient ischemic attack): Status: Acute Assessment and plan: Reassurance given to the patient regarding the negative MRI brain in my opinion: does not show any findings consistent with demyelinating disease. No need for any further workup. Continue with aspirin 81 mg along with statin. Patient is stable from neurology standpoint for discharge home. Will see him back in my office in 2 to 3 weeks. (2) Hypertension: Status: Chronic Assessment and plan: Under control, could resume his outpatient meds upon discharge
[2024-12-03] VITALS (8 sets, daily range): BP systolic 138–158; BP diastolic 80–108; PULSE 64–99; RESP 16–96; TEMP 36–36.5; O2SAT 95–96; BMI 31.7
[2024-12-03] MEDS: hydrALAZINE INJ 20 MG/ML VIAL 10 MG IV (05:21)
[2024-12-03] MEDS: SENNA TABLET 1 TAB PO (08:34)
[2024-12-03] MEDS: HEPARIN SOD INJ 5000 UNIT/ML VIAL SC (08:34)
[2024-12-03] MEDS: ASPIRIN EC 81 MG TABEC PO (08:34)
[2024-12-03] MEDS: BusPIRone HCL 5 MG TABLET 7.5 MG PO (09:48)
[2024-12-03 10:23] LABS: Basophils % (Auto) 1 % (0-2.5); Eosinophils % (Auto) 1 % (0-10); Hematocrit 47.9 % (41.0-53.0); Hemoglobin 16.3 g/dL (13.5-16.0); Immature Granulocytes % (Auto) 0 % (0-0); Immature Granulocytes Auto 0.01 Thou/mm3 (0.00-0.00); Lymphocytes # (Auto) 1.2 Thou/mm3 (1.0-4.8); Lymphocytes % (Auto) 20 % (10-50); Mean Corpuscular Hemoglobin 30.6 pg (25.0-35.0); Mean Corpuscular Volume 90 fL (80-100); Monocytes # (Auto) 0.3 Thou/mm3 (0.0-0.8); Monocytes % (Auto) 6 % (0-12); Neutrophils # (Auto) 4.2 Thou/mm3 (1.8-7.7); Neutrophils % (Auto) 73 % (37-80); Nucleated Red Blood Cell % 0 /100 WBC (0); Platelet Count 303 Thou/mm3 (140-440); RDW Standard Deviation 43.8 fL (35.1-43.9); Red Blood Count 5.33 Miln/mm3 (4.50-5.90); White Blood Count 5.7 Thou/mm3 (3.8-10.6)
[2024-12-03 10:47] LABS: Anion Gap 13 (7-16); BUN/Creatinine Ratio 17 Ratio (12-20); Blood Urea Nitrogen 17 mg/dL (9-23); Calcium 8.7 mg/dL (8.3-10.6); Carbon Dioxide 22.7 mMol/L (20.0-31.0); Chloride 105 mMol/L (98-107); Estimated Creatinine Clearance 84.2 mL/min (>60); Glucose 219 mg/dL (74-106); Magnesium 2.1 mg/dL (1.6-2.6); Osmolality,Calculated 289 (275-295); Phosphorous 2.6 mg/dL (2.4-5.1); Potassium 3.6 mMol/L (3.4-5.1); Sodium 141 mMol/L (136-145); eGFR > 60 See Note
--- NOTE | 2024-12-03 11:03 | PD.RESDS ---
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 Traffic Officer] Routine Comment: TIA 12/01/24 14:45 Referral Physical Therapy Routine Comment: Physician Instructions: Instructions: TIA/stroke 12/03/24 08:32 Referral Speech Therapy Routine Comment: Attending Provider on DC: David Ga MD Discharging Provider: Nico Gonzalez MD DS: Diagnosis Problem List Completed Was Problem List Reviewed/Reconciled?: Yes Hospital Course Hospital Course Hospital course: A 59-year-old male with a past medical history significant for coronary artery disease s/p angiogram 2020, primary hypertension, anxiety and hyperlipidemia presented today with a chief complaint of slurred speech and left-sided weakness. Patient will be admitted for treatment and management of hypertensive emergency and TIA. CT head and CTA were both negative for any acute findings. Patient's passed swallow and speech evaluation and all symptoms resolved within 1 hour of presenting to the emergency department. MR brain showed some demyelinating changes. However neurology assessed and did not see any findings consistent with demyelinating disease, no need for any further workup. Patient was started on aspirin 81 Mg p.o. daily and high intensity atorvastatin 80 Mg p.o. at bedtime. For patient's anxiety, he was started on buspirone 7.5 Mg p.o. twice daily. All patient's labs are now returning to his baseline. Patient is now clinically stable and fit for discharge to home. Discharge diagnoses: 1. TIA 2. Hypertensive emergency 3. Stroke ruled out 4. Primary hypertension 5. Hyperlipidemia 6. Prediabetes 7. Coronary artery disease s/p angioplasty 2020 8. Superficial foreign body of right index finger Discharge plan: - You have been started on medication aspirin for your stroke. Take 1 tablet once a day. ? You have been started on cholesterol medication. Take 1 tablet once a day at night. ? We have been started on a medication for anxiety buspirone. Take 1-1/2 tablets twice a day for your anxiety. ? You have been started on a medication melatonin to help you sleep. Take 1 at night as needed. ? Continue your home blood pressure pill lisinopril as before. ? Recommend to follow-up with neurologist, Dr. Luo within 2 weeks of discharge. ? We recommend you see your PCP for an appointment with a licensed practical vocational nurse to get an echocardiogram and evaluation. - Follow up with your primary care physician within 1 week of discharge. If you do not have a primary care physician, please follow up with the [facility] Residents clinic ([phone]) ? If you experience any new, worsening or persistent symptoms either call your primary doctor, or dial 911 or present to the emergency department. We are grateful to be able to participate in Mr. Montalvo's care. We wish him the best. Plan of care discussed with Attending Dr. Harmeet Gonzalez MD PGY 1 Disclaimer: This note was dictated by speech recognition. Minor errors in basic sciences dean may be present due to voice recognition software. Time Spent with Patient Time attestation: Total time spent providing and/or coordinating discharge services: Time spent: Greater than 30 minutes (37) Exam Vital Signs Temp Pulse Resp BP Pulse Ox O2 Del Method 97.3 F 77 16 147/87 H 95 Room Air 12/03/24 08:00 12/03/24 08:00 12/03/24 08:00 12/03/24 08:00 12/03/24 08:00 12/03/24 08:00 Narrative Exam GEN: AOx3, able to speak full sentences HEENT: NC/AC, PERRLA, oral mucosa moist, neck supple CVS: RRR, S1-S2 present, no murmurs appreciated RESP: CTAB GI: soft,non distended, non tender, NBS MSK: Examination of the right index showed no obvious injury or sensation of any foreign body. However, we placed a magnet in front of his finger and it showed movement of his finger with the magnet. Able to move all 4 limbs, no lower extremity edema SKIN: warm and dry TECHNICAL SERVICES CONSULTANT: CN II-XII and Sensation grossly intact. Discharge Plan Plan Patient Disposition: HOME (Self Care) Care Plan Goals: - You have been started on medication aspirin for your stroke. Take 1 tablet once a day. ? You have been started on cholesterol medication. Take 1 tablet once a day at night. ? We have been started on a medication for anxiety buspirone. Take 1-1/2 tablets twice a day for your anxiety. ? You have been started on a medication melatonin to help you sleep. Take 1 at night as needed. ? Continue your home blood pressure pill lisinopril as before. ? Recommend to follow-up with neurologist, Dr. Luo within 2 weeks of discharge. ? We recommend you see your PCP for an appointment with a licensed practical vocational nurse to get an echocardiogram and evaluation. - Follow up with your primary care physician within 1 week of discharge. If you do not have a primary care physician, please follow up with the [facility] Residents clinic ([phone]) ? If you experience any new, worsening or persistent symptoms either call your primary doctor, or dial 911 or present to the emergency department. Prescriptions/Referrals Prescriptions/Med Rec: New aspirin [Ecotrin Low Strength] 81 mg Tablet,Delayed Release (Dr/Ec) 81 mg PO QDAY 30 Days Qty: 30 3RF lisinopril 20 mg tablet 20 mg PO QDAY 30 Days Qty: 30 3RF atorvastatin 80 mg tablet 80 mg PO QPM 30 Days Qty: 30 1RF buspirone 7.5 mg tablet 7.5 mg PO BID 30 Days Qty: 60 1RF Discontinued lisinopril 20 mg tablet 20 mg PO QDAY buspirone 10 mg tablet 10 mg PO Q6HR PRN (Reason: anxiety) Rx Instructions: Take 1/2 to 1 tablet by mouth every 6-8 hours as needed Referrals: Vern Laurent MD [Physician] - No Primary/Family,Physician [Primary Care Provider] - Nico Gonzalez MD [Resident] - Raymond Luo MD [Physician] - Patient/Caregiver Discharge Instructions Print Language: Irish Stand Alone Forms: Yasemin Award Info., Patient Portal Info Letter, Work/Release Restrictions Discharge Order Discharge Orders: Discharge (Routine); Ordered 12/03/24 Ordered By: Nico Gonzalez Quality Discharge Quality Measures VTE prophylaxis Attestestation Attestation I have examined the patient, reviewed labs and imaging findings, discussed the case with the resident(s), and reviewed entered orders. I agree with the plan of care as outlined in this note. Time Spent: [address] Harmeet MD
== END 2024-12-03 13:07 | disposition home or self-care (01) ==
LOC: SERX 12:21 → SERHOLD 14:03 → S2NX 15:56 → S3SX 12-03 04:53
PROVIDERS: Admitting Provider Student in an Organized Health Care Education/Training Program; Emergency Provider Emergency Medicine; Visit Provider Student in an Organized Health Care Education/Training Program
DX: G45.9 Transient cerebral ischemic attack, unspecified (principal); E78.00 Pure hypercholesterolemia, unspecified; F41.9 Anxiety disorder, unspecified; I10 Essential (primary) hypertension; I16.1 Hypertensive emergency; I25.10 Atherosclerotic heart disease of native coronary artery without angina pectoris; R29.810 Facial weakness; R73.03 Prediabetes; Z01.810 Encounter for preprocedural cardiovascular examination; Z95.5 Presence of coronary angioplasty implant and graft
CPT/HCPCS: 36415; 70450; 70496; 70498; 70544; 73120; 80048; 80053; 80061; 80307; 80320; 81001; 83036; 83735; 84100; 84443; 84484; 84703; 85025; 85610; 85730; 87086; 92610; 93005; 96372; 96374; 97162; 99291; A4649; G0378; J0360; J1644; J3490; Q9967; A9270; G0480